=== PATIENT | female | born 1985 | race Caucasian/White ===

== ENCOUNTER 2016-11-05 15:21 | Outpatient (CLI) | payer OTHER | END 2016-11-05 15:22 | disposition home or self-care (01) | DX: E10.42 Type 1 diabetes mellitus with diabetic polyneuropathy (principal) ==

== ENCOUNTER 2016-12-01 | Outpatient (CLI) | payer OTHER | END 2016-12-01 02:30 | disposition EMS.NT | DX: Z03.89 Encounter for observation for other suspected diseases and conditions ruled out (principal) ==

== ENCOUNTER 2017-02-15 08:00 | Outpatient (CLI) | payer OTHER | END 2017-02-15 08:01 | LOC: LAB.R 08:00 | PROVIDERS: ATTEND Obstetrics & Gynecology | DX: Z36 Encounter for antenatal screening of mother (principal) | CPT/HCPCS: 87491; 87591 ==

== ENCOUNTER 2017-03-07 09:02 | Outpatient (CLI) | payer OTHER ==
[2017-03-07 13:03] LABS: BILIRUBIN,URINE NEGATIVE (NEGATIVE); PH,URINE 6.5 PH (5.0-7.5)
[2017-03-07 13:07] LABS: BASOPHILS # (AUTO) 0.1 10^3/uL (0.0-0.1); BASOPHILS % (AUTO) 0.6 %; EOSINOPHILS # (AUTO) 0.1 10^3/uL (0.0-0.7); HCT - HEMATOCRIT 35.8 % (37.0-47.0); HGB - HEMOGLOBIN 12.2 g/dL (12.0-16.0); LYMPHOCYTES # (AUTO) 2.4 10^3/uL (1.5-3.5); MEAN CORPUSCULAR HEMOGLOBIN 31.8 pg (27.0-31.0); MEAN CORPUSCULAR HGB CONC 34.1 g/dL (32.0-36.0); MEAN CORPUSCULAR VOLUME 93.1 fL (81.0-99.0); MEAN PLATELET VOLUME 8.1 fL (7.9-10.8); MONOCYTES # (AUTO) 0.8 10^3/uL (0.0-1.0); MONOCYTES % (AUTO) 6.6 %; NEUTROPHILS # (AUTO) 8.1 10^3/uL (1.5-6.6); NEUTROPHILS % (AUTO) 70.8 %; RED BLOOD COUNT 3.85 10^6/uL (4.20-5.40); RED CELL DISTRIBUTION WIDTH 12.6 % (12.0-15.0); UNCORRECTED WHITE BLOOD COUNT 11.5 x10^3/uL; WHITE BLOOD COUNT 11.5 x10^3/uL (4.8-10.8)
[2017-03-07 13:11] LABS: WBC,URINE 0-3 /HPF (0-5)
[2017-03-07 13:40] LABS: HEMOGLOBIN A1C 0.55 g/dL
[2017-03-08 11:01] LABS: TEST RESULT REPORT (())
== END 2017-03-07 09:03 | disposition home or self-care (01) ==
LOC: LAB.N 09:02
PROVIDERS: ATTEND Obstetrics & Gynecology
DX: Z36 Encounter for antenatal screening of mother (principal)
CPT/HCPCS: 36415; 81001; 81599; 82947; 83036; 85025; 86592; 86762; 86850; 86900; 86901; 87340; 87389

== ENCOUNTER 2017-04-24 03:37 | Outpatient (CLI) | payer OTHER | END 2017-04-24 03:38 | disposition EMS.NT | LOC: EMS 03:37 | PROVIDERS: ATTEND Surgery | DX: O99.89 Other specified diseases and conditions complicating pregnancy, childbirth and the puerperium (principal); R56.9 Unspecified convulsions ==

== ENCOUNTER 2017-04-25 01:39 | Outpatient (CLI) | payer OTHER | END 2017-04-25 01:40 | disposition critical access hospital (66) | LOC: EMS 01:39 | PROVIDERS: ATTEND Surgery | DX: R41.82 Altered mental status, unspecified (principal) | CPT/HCPCS: A0425; A0427 ==

== ENCOUNTER 2017-04-25 02:03 | Emergency (ER) | payer OTHER ==
--- NOTE | 2017-04-25 02:12 | ED Physician Documentation ---
History of Present Illness - Stated complaint Stated Complaint: LOW BLOOD SUGAR - History obtained from History obtained from: Patient - History of Present Illness Pain level now: 0 Improved by: symptoms resolved after IV amp D50 given by medics Worsened by: no apparent inciting or exacerbating factors - Additonal information Additional information: called 911 due to AMS, blood sugar was 20s, improved to 140s after 1 amp D50 IV given by medics en route. Medics were at her house last night for same problem, but patient refused transport once she improved. Review of Systems Constitutional: reports: Myalgias. denies: Fever, Chills, Sweats Eyes: reports: Reviewed and negative Cardiac: reports: Reviewed and negative Respiratory: reports: Cough. denies: Dyspnea GI: reports: Reviewed and negative : denies: Dysuria, Frequency PD PAST MEDICAL HISTORY - Past Medical History Endocrine/Autoimmune: Type 1 diabetes Musculoskeletal: Chronic back pain - Past Surgical History Past Surgical History: No - Present Medications Home Medications: Ambulatory Orders Medication Instructions Recorded Confirmed Lidocaine Viscous 2% [Xylocaine 5 ml MM Q4H PRN #1 bottle 04/25/17 Viscous 2%] - Allergies Allergies/Adverse Reactions: Allergies Allergy/AdvReac Type Severity Reaction Status Date / Time No Known Drug Allergies Allergy Verified 04/25/17 02:13 - Social History Does the pt smoke?: Yes Smoking Status: Current every day smoker Does the pt drink ETOH?: Yes Does the pt have substance abuse?: No - Immunizations Immunizations are current?: Yes - POLST Patient has POLST: No PD ED PE NORMAL - Vitals Vital signs reviewed: Yes - General General: Alert and oriented X 3, No acute distress, Well developed/nourished - Neck Neck: Supple, no meningeal sign - Cardiac Cardiac: RRR, No murmur - Respiratory Respiratory: No respiratory distress, Clear bilaterally - Abdomen Abdomen: Soft, Non tender - Derm Derm: Normal color, Warm and dry - Extremities Extremities: No edema Results - Vitals Vitals: Vital Signs - 24 hr 04/25/17 04/25/17 04/25/17 02:04 03:07 04:05 Temperature 36.5 C Heart Rate 87 97 90 Respiratory 16 16 18 Rate Blood Pressure 96/71 122/66 101/52 L O2 Saturation 100 99 98 Oxygen O2 Source Room air - Labs Labs: Laboratory Tests 04/25/17 04/25/17 04/25/17 02:38 02:48 02:48 WBC 15.0 H RBC 3.83 L Hgb 12.2 Hct 36.5 L MCV 95.2 MCH 31.7 H MCHC 33.3 RDW 12.2 Plt Count 384 MPV 7.4 L Neut # 11.4 H Lymph # 2.2 [place] # 1.1 H Eos # 0.2 Baso # 0.0 Absolute Nucleated RBC 0.01 Nucleated RBCs 0.0 Sodium 136 Potassium 4.3 Chloride 105 Carbon Dioxide 24 Anion Gap 7.0 BUN 10 Creatinine 0.4 Estimated GFR (MDRD) 185 Glucose 72 Calcium 9.0 Total Bilirubin 0.3 AST 21 ALT 18 Alkaline Phosphatase 73 Total Protein 7.3 Albumin 3.8 Globulin 3.5 Albumin/Globulin Ratio 1.1 Lipase 14 L Urine Color YELLOW Urine Clarity CLEAR Urine pH 6.0 Ur Specific [place] 1.015 Urine Protein NEGATIVE Urine Glucose (UA) 100 H Urine Ketones NEGATIVE Urine Occult Blood NEGATIVE Urine Nitrite NEGATIVE Urine Bilirubin NEGATIVE Urine Urobilinogen 0.2 (NORMAL) Ur Leukocyte Esterase NEGATIVE Ur Microscopic Review NOT INDICATED Urine Culture Comments NOT INDICATED PD MEDICAL DECISION MAKING - ED course Complexity details: reviewed results, re-evaluated patient, considered differential, d/w patient Departure - Departure Disposition: 01 Home, Self Care Clinical Impression: Hypoglycemia Condition: Good Instructions: ED Diabetes Hypoglycemia Insulin React Follow-Up: Tabitha Fernandez ARNP [Credentialed Staff Provider] - Prescriptions: Lidocaine Viscous 2% [Xylocaine Viscous 2%] 5 ml MM Q4H PRN #1 bottle PRN Reason: Pain Discharge Date/Time: 04/25/17 04:44
[2017-04-25 02:47] LABS: BILIRUBIN,URINE NEGATIVE (NEGATIVE); UA CHARGE (STRIP ONLY) YES; UR CULTURE IF IND NOT INDICATED
[2017-04-25 03:00] LABS: BASOPHILS % (AUTO) 0.3 %; EOSINOPHILS # (AUTO) 0.2 10^3/uL (0.0-0.7); EOSINOPHILS % (AUTO) 1.5 %; HCT - HEMATOCRIT 36.5 % (37.0-47.0); HGB - HEMOGLOBIN 12.2 g/dL (12.0-16.0); LYMPHOCYTES # (AUTO) 2.2 10^3/uL (1.5-3.5); LYMPHOCYTES % (AUTO) 14.7 %; MEAN CORPUSCULAR HEMOGLOBIN 31.7 pg (27.0-31.0); MEAN CORPUSCULAR HGB CONC 33.3 g/dL (32.0-36.0); MEAN CORPUSCULAR VOLUME 95.2 fL (81.0-99.0); MEAN PLATELET VOLUME 7.4 fL (7.9-10.8); MONOCYTES # (AUTO) 1.1 10^3/uL (0.0-1.0); MONOCYTES % (AUTO) 7.6 %; NEUTROPHILS # (AUTO) 11.4 10^3/uL (1.5-6.6); NEUTROPHILS % (AUTO) 75.9 %; RED BLOOD COUNT 3.83 10^6/uL (4.20-5.40); RED CELL DISTRIBUTION WIDTH 12.2 % (12.0-15.0)
[2017-04-25 03:16] LABS: ALBUMIN/GLOBULIN RATIO 1.1 (1.0-2.2); BILIRUBIN,TOTAL 0.3 mg/dL (0.2-1.0); CREATININE 0.4 mg/dL (0.4-1.0); POTASSIUM 4.3 mmol/L (3.5-5.0); TOTAL PROTEIN 7.3 g/dL (6.7-8.2)
[2017-04-25 04:06] VITALS: BP 101/52
[2017-04-25] MEDS ORDERED: LIDOCAINE VISCOUS 2% 15 ML UDC MM STA (04:28)
[2017-04-25] MEDS ORDERED: LIDOCAINE VISCOUS 2% 15 ML UDC MM ONE (04:31)
== END 2017-04-25 04:44 | disposition home or self-care (01) ==
LOC: EDUNIT# → ED 02:03
DX: E10.649 Type 1 diabetes mellitus with hypoglycemia without coma (principal); F17.200 Nicotine dependence, unspecified, uncomplicated
CPT/HCPCS: 36415; 80053; 81001; 81003; 83690; 85025; 87086; 99283; 99284

== ENCOUNTER 2017-10-03 04:04 | Outpatient (CLI) | payer OTHER | END 2017-10-03 04:05 | disposition EMS.NT | LOC: EMS 04:04 | PROVIDERS: ATTEND Surgery | DX: R73.09 Other abnormal glucose (principal); R46.4 Slowness and poor responsiveness ==

== ENCOUNTER 2018-02-22 15:23 | Emergency (ER) | payer OTHER ==
--- NOTE | 2018-02-22 16:42 | ED Physician Documentation ---
PD HPI ABD PAIN - Stated complaint Stated Complaint: ABD PX - Chief complaint Chief Complaint: Cardiac - History obtained from History obtained from: Patient - History of Present Illness Timing - onset: How many days ago (few) Timing - duration: Days (few) Timing - details: Gradual onset, Waxing and waning Quality: Cramping, Aching, Pain Location: RUQ, Epigastric Radiation: Chest, Upper back Worsened by: Eating Associated symptoms: Nausea. No: Fever, Vomiting, Diarrhea, Melena Similar symptoms before: Has not had sx before Recently seen: Not recently seen Review of Systems Constitutional: denies: Fever, Chills Nose: reports: Congestion. denies: Rhinorrhea / runny nose Throat: denies: Sore throat Cardiac: reports: Chest pain / pressure. denies: Palpitations, Pedal edema, Calf pain Respiratory: reports: Cough (for several days) GI: reports: Abdominal Pain, Nausea. denies: Vomiting, Diarrhea : denies: Dysuria, Frequency Musculoskeletal: denies: Extremity swelling Neurologic: reports: Generalized weakness. denies: Focal weakness, Numbness, Near syncope, Altered mental status PD PAST MEDICAL HISTORY - Past Medical History Cardiovascular: None Respiratory: None Neuro: None Endocrine/Autoimmune: Type 1 diabetes GI: None Musculoskeletal: Chronic back pain - Past Surgical History Past Surgical History: No - Present Medications Home Medications: Ambulatory Orders Medication Instructions Recorded Confirmed Albuterol Sulf [Ventolin Hfa 02/22/18 Inhaler] Gabapentin 100 TID 02/22/18 Ondansetron Odt [Zofran] 4 mg TL Q6H PRN #15 tablet 02/22/18 Pantoprazole [Protonix] 40 mg PO DAILY #30 tablet 02/22/18 Sucralfate 1 gm PO TID #20 tablet 02/22/18 Venlafaxine [Effexor] 02/22/18 oxyCODONE/ACET 5/325 [Percocet 5 02/22/18 mg/325 mg] tiZANidine [Zanaflex] 4 BID 02/22/18 - Allergies Allergies/Adverse Reactions: Allergies Allergy/AdvReac Type Severity Reaction Status Date / Time No Known Drug Allergies Allergy Verified 04/25/17 02:13 - Social History Does the pt smoke?: Yes Smoking Status: Current every day smoker Does the pt drink ETOH?: Yes Does the pt have substance abuse?: No - Immunizations Immunizations are current?: Yes - POLST Patient has POLST: No PD ED PE NORMAL - Vitals Vital signs reviewed: Yes - General General: Alert and oriented X 3, No acute distress, Well developed/nourished - HEENT HEENT: Ears normal, Pharynx benign - Neck Neck: Supple, no meningeal sign, No adenopathy - Cardiac Cardiac: RRR, No murmur - Respiratory Respiratory: Clear bilaterally - Abdomen Abdomen: Normal bowel sounds, Soft, Non distended, No organomegaly, Other ( tender without guarding epigastric/RUQ. ) - Female Female : Deferred - Rectal Rectal: Deferred - Back Back: No CVA TTP - Derm Derm: Normal color, Warm and dry - Extremities Extremities: No deformity, No tenderness to palpate, Normal ROM s pain, No edema , No calf tenderness / cord - Neuro Neuro: Alert and oriented X 3, No motor deficit, Normal speech Results - Vitals Vitals: Oxygen O2 Source Room air - EKG (time done) 16:00 Rate: Rate (enter#) (84) Rhythm: NSR [place]: Normal Intervals: Normal MI QRS: Normal Ischemia: Normal ST segments, ST elevation c/w repol (hint of elevation diffusely). No: ST elevation c/w ischemia, ST depression - Labs Labs: Laboratory Tests 02/22/18 02/22/18 18:24 18:24 WBC 9.5 RBC 4.20 Hgb 12.9 Hct 38.5 MCV 91.6 MCH 30.8 MCHC 33.6 RDW 12.4 Plt Count 400 MPV 7.6 L Neut # 5.5 Lymph # 3.1 [place] # 0.6 Eos # 0.3 Baso # 0.1 Absolute Nucleated RBC 0.00 Nucleated RBC % 0.0 Sodium 134 L Potassium 4.0 Chloride 103 Carbon Dioxide 24 Anion Gap 7.0 BUN 10 Creatinine 0.5 Estimated GFR (MDRD) 142 Glucose 221 H Calcium 8.9 Total Bilirubin 0.7 AST 14 ALT 18 Alkaline Phosphatase 73 Total Protein 7.3 Albumin 4.3 Globulin 3.0 Albumin/Globulin Ratio 1.4 Lipase 13 L - Rads (name of study) chest Radiology: Prelim report reviewed, EMP read contemporaneously (no infiltrates) RUQ US Radiology: Prelim report reviewed (normal gallbladder) PD MEDICAL DECISION MAKING - ED course Complexity details: reviewed results, considered differential (had cough and cold so consider pneumonia or such. but symptoms correlate with eating and has a lot of bleching, so gallbladder, pancreatic, gastritis. Cardiac low suspicion. ), d/w patient Departure - Departure Disposition: 01 Home, Self Care Clinical Impression: Upper abdominal pain Gastritis Qualifiers: Gastritis type: unspecified gastritis Chronicity: acute Gastritis bleeding: without bleeding Qualified Code(s): K29.00 - Acute gastritis without bleeding Condition: Stable Record reviewed to determine appropriate education?: Yes Instructions: ED PUD Vs Gastritis Follow-Up: Tabitha Fernandez ARNP [Primary Care Provider] - Prescriptions: Ondansetron Odt [Zofran] 4 mg TL Q6H PRN #15 tablet PRN Reason: Nausea / Vomiting Pantoprazole [Protonix] 40 mg PO DAILY #30 tablet Sucralfate 1 gm PO TID #20 tablet Comments: Your chest x-ray is clear. The gallbladder appears normal on ultrasound. Lab tests are good so not looking like pancreas or liver problems. I presume it is a gastritis or possibly ulcer. Use pantoprazole daily for the next month. Sucralfate 3 times a day to coat the stomach. Add antacids if needed and Tylenol if needed for pain. Ondansetron if needed for nausea. Follow-up with your primary care in about a week, call for an appointment. Return if worsening. Discharge Date/Time: 02/22/18 19:45
[2018-02-22] MEDS ORDERED: MAG HYDROX/AL HYDROX/SIMETH 30 ML UDC PO STA (16:57)
[2018-02-22] MEDS ORDERED: PHENobarb/HYOSCY/ATROPINE/SCOP 5 ML UDC PO STA (16:57)
[2018-02-22] MEDS ORDERED: LIDOCAINE VISCOUS 2% 15 ML UDC MM STA (16:57)
--- NOTE | 2018-02-22 17:41 | XRAY Preliminary Report ---
Exam: XR CHEST 2 VIEW X-RAY IMPRESSION: No acute radiographic pulmonary abnormalities. [facility] SITE ID: [id number]
--- NOTE | 2018-02-22 17:41 | XRAY Report ---
EXAM: CHEST RADIOGRAPHY EXAM DATE: 02/22/2018 05:27 PM. CLINICAL HISTORY: Rib pain. COMPARISON: None. TECHNIQUE: 2 views. FINDINGS: Lungs/Pleura: No dense consolidation. No large effusion or pneumothorax. No pulmonary edema. Mediastinum: Heart and mediastinal contours are unremarkable. Other: None. IMPRESSION: No acute radiographic pulmonary abnormalities. [facility] Referring Provider Line: [phone] SITE ID: [id number]
--- NOTE | 2018-02-22 18:29 | Ultrasound Report ---
EXAM: ABDOMEN ULTRASOUND LIMITED, RUQ EXAM DATE: 02/22/2018 05:41 PM. CLINICAL HISTORY: RUQ pain for several days. COMPARISON: None. TECHNIQUE: Real-time scanning was performed with static images obtained. FINDINGS: Liver: Submitted images of liver demonstrate no focal lesions. Main portal vein flow: Hepatopetal. Gallbladder: No stones, wall thickening, or sonographic Land's sign. Biliary System: CBD measures 2 mm. No intrahepatic or extrahepatic ductal dilatation. Other: The visualized pancreas and right kidney are unremarkable. IMPRESSION: Negative right upper quadrant ultrasound. [facility] Referring Provider Line: [phone] SITE ID: [id number]
[2018-02-22 18:38] LABS: BASOPHILS # (AUTO) 0.1 10^3/uL (0.0-0.1); EOSINOPHILS # (AUTO) 0.3 10^3/uL (0.0-0.7); EOSINOPHILS % (AUTO) 2.9 %; HGB - HEMOGLOBIN 12.9 g/dL (12.0-16.0); LYMPHOCYTES # (AUTO) 3.1 10^3/uL (1.5-3.5); LYMPHOCYTES % (AUTO) 32.6 %; MEAN CORPUSCULAR HEMOGLOBIN 30.8 pg (27.0-31.0); MEAN CORPUSCULAR HGB CONC 33.6 g/dL (32.0-36.0); MEAN CORPUSCULAR VOLUME 91.6 fL (81.0-99.0); MEAN PLATELET VOLUME 7.6 fL (7.9-10.8); MONOCYTES # (AUTO) 0.6 10^3/uL (0.0-1.0); MONOCYTES % (AUTO) 6.2 %; NEUTROPHILS # (AUTO) 5.5 10^3/uL (1.5-6.6); NEUTROPHILS % (AUTO) 57.3 %; PLT - PLATELET COUNT 400 10^3/uL (130-450); RED CELL DISTRIBUTION WIDTH 12.4 % (12.0-15.0); WHITE BLOOD COUNT 9.5 x10^3/uL (4.8-10.8)
[2018-02-22 18:45] LABS: ALBUMIN 4.3 g/dL (3.2-5.5); ALBUMIN/GLOBULIN RATIO 1.4 (1.0-2.2); BILIRUBIN,TOTAL 0.7 mg/dL (0.2-1.0); CALCIUM 8.9 mg/dL (8.5-10.3); CREATININE 0.5 mg/dL (0.4-1.0); TOTAL PROTEIN 7.3 g/dL (6.7-8.2)
[2018-02-22] MEDS ORDERED: PANTOPRAZOLE 40 MG TABLET PO STA (19:41)
[2018-02-22 19:48] VITALS: BP 122/72
== END 2018-02-22 19:45 | disposition home or self-care (01) ==
LOC: ED 15:23
DX: R10.11 Right upper quadrant pain (principal); K29.00 Acute gastritis without bleeding; R94.31 Abnormal electrocardiogram [ECG] [EKG]; E10.9 Type 1 diabetes mellitus without complications; F17.200 Nicotine dependence, unspecified, uncomplicated
CPT/HCPCS: 36415; 71046; 76705; 80053; 83690; 85025; 93005; 99283; A9270

== ENCOUNTER 2018-08-18 14:39 | Emergency (ER) | payer OTHER ==
[2018-08-18 14:51] VITALS: BP 113/75
--- NOTE | 2018-08-18 16:38 | ED Physician Documentation ---
PD HPI URI - Stated complaint Stated Complaint: SORE THROAT/TOE PX - Chief complaint Chief Complaint: Heent - History obtained from History obtained from: Patient - History of Present Illness Timing duration: Weeks (1) Timing details: Still present Associated symptoms: Sore throat, Dry cough Contributing factors: Sick contact - Additional information Additional information: The patient is a 33-year-old female who presents with upper respiratory symptoms, including cough for the past week, sore throat, and headache. She denies fever, shortness of breath, or abdominal symptoms. She reports that her was sick with similar symptoms previously. In addition, she also reports injury to her right fourth toe when she stubbed it on the bedpost 2 nights ago. At the same time she banged her left eye on edge of the dresser. She denies loss of consciousness or other injuries. Her past medical history is significant for type 2 diabetes and for seizure disorder. Review of Systems Constitutional: denies: Fever Eyes: denies: Irritation Ears: denies: Ear pain Nose: reports: Congestion Throat: reports: Sore throat Cardiac: denies: Chest pain / pressure Respiratory: reports: Cough. denies: Dyspnea GI: denies: Abdominal Pain, Nausea, Vomiting : denies: Dysuria Skin: denies: Rash Musculoskeletal: denies: Neck pain Neurologic: reports: Headache. denies: Focal weakness, Numbness PD PAST MEDICAL HISTORY - Past Medical History Cardiovascular: None Respiratory: None Neuro: None Endocrine/Autoimmune: Type 2 diabetes GI: None Musculoskeletal: Chronic back pain - Past Surgical History Past Surgical History: No - Present Medications Home Medications: Ambulatory Orders Medication Instructions Recorded Confirmed Albuterol Sulf [Ventolin Hfa 02/22/18 Inhaler] Gabapentin 100 TID 02/22/18 Ondansetron Odt [Zofran] 4 mg TL Q6H PRN #15 tablet 02/22/18 Pantoprazole [Protonix] 40 mg PO DAILY #30 tablet 02/22/18 Sucralfate 1 gm PO TID #20 tablet 02/22/18 Venlafaxine [Effexor] 02/22/18 oxyCODONE/ACET 5/325 [Percocet 5 02/22/18 mg/325 mg] tiZANidine [Zanaflex] 4 BID 02/22/18 Benzonatate [Tessalon Perle] 100 - 200 mg PO TID PRN #30 capsule 08/18/18 - Allergies Allergies/Adverse Reactions: Allergies Allergy/AdvReac Type Severity Reaction Status Date / Time No Known Drug Allergies Allergy Verified 08/18/18 14:51 - Social History Does the pt smoke?: Yes Smoking Status: Current every day smoker Does the pt drink ETOH?: Yes Does the pt have substance abuse?: No - Immunizations Immunizations are current?: Yes - POLST Patient has POLST: No PD ED PE NORMAL - Vitals Vital signs reviewed: Yes (normal, with heart rate 86.) - General General: Alert and oriented X 3, Well developed/nourished - HEENT HEENT: PERRL, EOMI, Ears normal, Other (There is faint ecchymosis the left upper brow. There is no break in the integument. Extraocular movements are intact. O ropharynx is mildly erythematous, without tonsillar swelling or exudates. There is no peritonsillar swelling.) - Neck Neck: Supple, no meningeal sign, No adenopathy - Cardiac Cardiac: RRR, No murmur - Respiratory Respiratory: No respiratory distress, Clear bilaterally - Abdomen Abdomen: Soft, Non tender - Back Back: No CVA TTP - Derm Derm: No rash - Extremities Extremities: No edema, No calf tenderness / cord, Other (There is faint ecchymosis at the distal aspect of the right fourth toe, with associated tenderness to palpation. There is no deformity, no break in the integument, and distal neurovascular is intact.) - Neuro Neuro: Alert and oriented X 3, No motor deficit, No sensory deficit, Normal speech Results - Vitals Vitals: Oxygen O2 Source Room air - Labs Labs: Microbiology 08/18/18 15:55 Group A Strep Throat Culture - Final Throat MIXED OROPHARYNGEAL CASTILLO PRESENT. NO BETA STREP PRESENT IN CULTURE. Laboratory Tests 08/18/18 15:55 Group A Strep Rapid Negative PD MEDICAL DECISION MAKING - ED course Complexity details: reviewed results, re-evaluated patient, considered differential, d/w patient, d/w family ED course: The patient's presentation is most consistent with viral upper respiratory infection with cough. Rapid strep screen is negative. Her presentation does not suggest pneumonia or peritonsillar abscess. In addition she has a contusion to her right fourth toe. I discussed with her that imaging studies would be of no significant clinical benefit, as the results would not impact treatment. The fourth toe was ramya taped to the third toe. She is being discharged with a prescription for Tessalon. I discussed with her the expected course of illness, symptomatic treatment and outpatient follow-up as well as potentially worrisome signs or symptoms that should prompt reevaluation in the emergency department. Departure - Departure Disposition: 01 Home, Self Care Clinical Impression: Viral URI with cough Contusion of toe of right foot Qualifiers: Encounter type: initial encounter Toe: lesser toe Damage to nail status: without damage Qualified Code(s): S90.121A - Contusion of right lesser toe(s) without damage to nail, initial encounter Condition: Stable Instructions: ED Upper Resp Infec No Abx Tx, ED Contusion Lower Ext Follow-Up: Tabitha Fernandez ARNP [Primary Care Provider] - Prescriptions: Benzonatate [Tessalon Perle] 100 - 200 mg PO TID PRN #30 capsule PRN Reason: Cough Comments: Your symptoms are most consistent with a viral upper respiratory infection. Antibiotics are not clinically indicated for this type of viral infection. Treatment should be geared toward managing symptoms: Drink plenty of fluids. Use Tylenol as needed for fever or discomfort. You can use Tessalon as prescribed if needed for cough. Wash your hands frequently, and cover your cough. Follow up with your primary physician, or return to the emergency department, if not improving within 1-2 weeks. Return to the emergency department if you develop increasing difficulty breathing, or otherwise worsening symptoms. Discharge Date/Time: 08/18/18 16:42
== END 2018-08-18 16:42 | disposition home or self-care (01) ==
LOC: ED 14:39
DX: J06.9 Acute upper respiratory infection, unspecified (principal); B97.89 Other viral agents as the cause of diseases classified elsewhere; E11.9 Type 2 diabetes mellitus without complications; F17.200 Nicotine dependence, unspecified, uncomplicated
CPT/HCPCS: 87070; 87430; 99282; 99283

== ENCOUNTER 2018-09-27 14:31 | Outpatient (CLI) | payer OTHER | END 2018-09-27 14:32 | disposition EMS.NT | LOC: EMS 14:31 | PROVIDERS: ATTEND Surgery | DX: S09.90XA Unspecified injury of head, initial encounter (principal); R55 Syncope and collapse; R56.9 Unspecified convulsions; R73.09 Other abnormal glucose ==

== ENCOUNTER 2018-12-04 16:01 | Outpatient (CLI) | payer OTHER | END 2018-12-04 16:02 | disposition critical access hospital (66) | LOC: EMS 16:01 | PROVIDERS: ATTEND Surgery | DX: R40.20 Unspecified coma (principal) | CPT/HCPCS: A0425; A0427 ==

== ENCOUNTER 2018-12-04 16:21 | Emergency (ER) | payer OTHER ==
--- NOTE | 2018-12-04 16:31 | ED Physician Documentation ---
PD HPI ALTERED MENTAL STATUS - Stated complaint Stated Complaint: ALOC - History obtained from History obtained from: Patient, EMS - History of Present Illness Timing - onset: Today (This is a 33-year-old woman with type 1 diabetes. She takes Lantus and NovoLog. Most of the history is from the paramedics as the patient is very slow to answer questions on arrival. I guess the kids got home from school on the bus and she did not go out to meet them so the neighbors got concerned and found her obtunded. Her blood sugar was low and she was administered D50. Her blood sugar then went to the 200s, but her mental status did not return fully to normal. She is slow to answer questions with slurred speech now. She says she may have taken extra Lantus today. [employer] reviewed, she is receiving 2 different types of benzodiazepines from a single physician, 60 0.5 mg alprazolam per month and 45 1 mg clonazepam per month.) Review of Systems Unable to obtain: Confused PD PAST MEDICAL HISTORY - Past Medical History Cardiovascular: None Respiratory: None Neuro: None Endocrine/Autoimmune: Type 2 diabetes GI: None Musculoskeletal: Chronic back pain - Past Surgical History Past Surgical History: No - Present Medications Home Medications: Ambulatory Orders Medication Instructions Recorded Confirmed Gabapentin 600 mg PO TID 02/22/18 Pantoprazole [Protonix] 40 mg PO DAILY #30 tablet 02/22/18 ALPRAZolam [Alprazolam] 0.5 mg PO BID 12/04/18 Insulin Aspart [NovoLOG] 12/04/18 Insulin Glargine [Lantus Solostar] 21 units SQ QPM 12/04/18 Venlafaxine HCl [Venlafaxine HCl 150 mg PO DAILY 12/04/18 ER] clonazePAM [Clonazepam] 1 mg PO BID 12/04/18 - Allergies Allergies/Adverse Reactions: Allergies Allergy/AdvReac Type Severity Reaction Status Date / Time No Known Drug Allergies Allergy Verified 12/04/18 16:33 - Social History Does the pt smoke?: Yes Smoking Status: Current every day smoker Does the pt drink ETOH?: Yes Does the pt have substance abuse?: No - Immunizations Immunizations are current?: Yes - POLST Patient has POLST: No PD ED PE NORMAL - Vitals Vital signs reviewed: Yes - General General: Other (Slow slurred speech) - HEENT HEENT: Other (Dilated pupils with a lot of nystagmus) - Neck Neck: Supple, no meningeal sign, No bony TTP - Cardiac Cardiac: RRR, No murmur - Respiratory Respiratory: No respiratory distress, Clear bilaterally - Abdomen Abdomen: Soft, Non tender - Back Back: No CVA TTP, No spinal TTP - Derm Derm: Normal color, Warm and dry - Extremities Extremities: No edema, No calf tenderness / cord - Neuro Neuro: cash clerk 2-12 intact, Normal speech Eye Opening: Spontaneous Motor: Obeys Commands Verbal: Confused GCS Score: 14 Results - Vitals Vitals: Vital Signs - 24 hr 12/04/18 12/04/18 12/04/18 16:26 16:56 18:06 Temperature 35.7 C L Heart Rate 79 82 82 Respiratory 14 16 18 Rate Blood Pressure 100/67 95/65 106/63 O2 Saturation 98 100 100 Oxygen O2 Source Room air - Labs Labs: Laboratory Tests 12/04/18 12/04/18 12/04/18 16:45 16:45 16:50 WBC 11.7 H RBC 3.93 L Hgb 12.5 Hct 36.9 L MCV 93.8 MCH 31.7 H MCHC 33.8 RDW 12.2 Plt Count 409 MPV 7.4 L Neut # (Auto) 9.0 H Lymph # (Auto) 1.8 [place] # (Auto) 0.6 Eos # (Auto) 0.2 Baso # (Auto) 0.1 Absolute Nucleated RBC 0.00 Nucleated RBC % 0.0 Sodium 139 Potassium 4.3 Chloride 104 Carbon Dioxide 29 Anion Gap 6.0 Glucose 95 Calcium 8.9 Urine Color Urine Clarity Urine pH Ur Specific [place] Urine Protein Urine Glucose (UA) Urine Ketones Urine Occult Blood Urine Nitrite Urine Bilirubin Urine Urobilinogen Ur Leukocyte Esterase Ur Microscopic Review Urine Culture Comments Urine HCG, Qual Urine Opiates Screen NEGATIVE Ur Oxycodone Screen NEGATIVE Urine Methadone Screen NEGATIVE Ur Propoxyphene Screen NEGATIVE Ur Barbiturates Screen NEGATIVE Ur Tricyclics Screen NEGATIVE Ur Phencyclidine Scrn NEGATIVE Ur Amphetamine Screen NEGATIVE U Methamphetamines Scrn NEGATIVE U Benzodiazepines Scrn POSITIVE H Urine Cocaine Screen NEGATIVE U Cannabinoids Screen POSITIVE H 12/04/18 16:50 WBC RBC Hgb Hct MCV MCH MCHC RDW Plt Count MPV Neut # (Auto) Lymph # (Auto) [place] # (Auto) Eos # (Auto) Baso # (Auto) Absolute Nucleated RBC Nucleated RBC % Sodium Potassium Chloride Carbon Dioxide Anion Gap Glucose Calcium Urine Color YELLOW Urine Clarity CLEAR Urine pH 5.5 Ur Specific [place] <=1.005 Urine Protein NEGATIVE Urine Glucose (UA) NEGATIVE Urine Ketones NEGATIVE Urine Occult Blood NEGATIVE Urine Nitrite NEGATIVE Urine Bilirubin NEGATIVE Urine Urobilinogen 0.2 (NORMAL) Ur Leukocyte Esterase NEGATIVE Ur Microscopic Review NOT INDICATED Urine Culture Comments NOT INDICATED Urine HCG, Qual NEGATIVE Urine Opiates Screen Ur Oxycodone Screen Urine Methadone Screen Ur Propoxyphene Screen Ur Barbiturates Screen Ur Tricyclics Screen Ur Phencyclidine Scrn Ur Amphetamine Screen U Methamphetamines Scrn U Benzodiazepines Scrn Urine Cocaine Screen U Cannabinoids Screen PD MEDICAL DECISION MAKING - ED course ED course: This is a 33-year-old woman on Lantus and Humalog presents with hypoglycemia which is unexplained on arrival. She is still altered despite her blood sugar being fixed. Could be a benzodiazepine or alcohol effect or she may just have been hypoglycemic for a long time. On recheck at 5:50 PM she drifted back down to a blood sugar of 40 necessitating prolonged observation and she was given half an amp of D50 and started on a D10 drip and I spoke with Dr. Pérez for admission at 5:57 PM. However she demanded to leave AGAINST MEDICAL ADVICE. She was cogent at this point, she was alert and oriented x3 and was able to state back to me the risks of leaving which included and disability. Her was present for these conversations and was willing to take her home. Departure - Departure Disposition: 07 Against Medical Advice Clinical Impression: Hypoglycemia Condition: Serious
[2018-12-04 16:56] LABS: BASOPHILS # (AUTO) 0.1 10^3/uL (0.0-0.1); BASOPHILS % (AUTO) 0.6 %; EOSINOPHILS # (AUTO) 0.2 10^3/uL (0.0-0.7); EOSINOPHILS % (AUTO) 1.7 %; HGB - HEMOGLOBIN 12.5 g/dL (12.0-16.0); LYMPHOCYTES # (AUTO) 1.8 10^3/uL (1.5-3.5); LYMPHOCYTES % (AUTO) 15.4 %; MEAN CORPUSCULAR HEMOGLOBIN 31.7 pg (27.0-31.0); MEAN CORPUSCULAR HGB CONC 33.8 g/dL (32.0-36.0); MEAN CORPUSCULAR VOLUME 93.8 fL (81.0-99.0); MEAN PLATELET VOLUME 7.4 fL (7.9-10.8); MONOCYTES # (AUTO) 0.6 10^3/uL (0.0-1.0); MONOCYTES % (AUTO) 5.5 %; NEUTROPHILS % (AUTO) 76.8 %; PLT - PLATELET COUNT 409 10^3/uL (130-450); RED BLOOD COUNT 3.93 10^6/uL (4.20-5.40); RED CELL DISTRIBUTION WIDTH 12.2 % (12.0-15.0); WHITE BLOOD COUNT 11.7 x10^3/uL (4.8-10.8)
[2018-12-04 17:04] LABS: MUDS CUTOFF CONCENTRATIONS CUTOFF CONC BELOW:
[2018-12-04 17:04] LABS: CALCIUM 8.9 mg/dL (8.5-10.3); CARBON DIOXIDE - CO2 29 mmol/L (21-32); CHLORIDE 104 mmol/L (101-111); GLUCOSE 95 mg/dL (70-100); SODIUM 139 mmol/L (135-145)
[2018-12-04 17:08] LABS: BILIRUBIN,URINE NEGATIVE (NEGATIVE); GLUCOSE, URINE (UA) NEGATIVE (NEGATIVE); KETONES,URINE (UA) NEGATIVE (NEGATIVE); LEUKOCYTE ESTERASE, URINE NEGATIVE (NEGATIVE); NITRITE,URINE NEGATIVE (NEGATIVE); OCCULT BLOOD,URINE NEGATIVE (NEGATIVE); PH,URINE 5.5 PH (5.0-7.5); PROTEIN,URINE NEGATIVE (NEGATIVE); UROBILINOGEN,URINE 0.2 (NORMAL) E.U./dL (NORMAL)
[2018-12-04 17:11] LABS: CLARITY,URINE CLEAR (CLEAR); HCG UR QUAL NEGATIVE
[2018-12-04 17:21] LABS: AMPHETAMINE SCREEN,URINE NEGATIVE (NEGATIVE); BENZODIAZEPINES SCREEN, URINE POSITIVE (NEGATIVE); COCAINE SCREEN URINE NEGATIVE (NEGATIVE); METHADONE SCREEN, URINE NEGATIVE (NEGATIVE); METHAMPHETAMINES SCREEN, URINE NEGATIVE (NEGATIVE); OPIATE SCREEN, URINE NEGATIVE (NEGATIVE); OXYCODONE SCREEN, URINE NEGATIVE (NEGATIVE); PROPOXYPHENE SCREEN, URINE NEGATIVE (NEGATIVE); TRICYCLIC ANTIDEPRESSANT,URINE NEGATIVE (NEGATIVE)
[2018-12-04] MEDS ORDERED: DEXTROSE 50% ABBOJECT 25 GM/50 ML SYRINGE IVP STA (17:55)
[2018-12-04] MEDS ORDERED: DEXTROSE 10% 1,000 ML IV SCH ×3 (18:00→19:00)
[2018-12-04] MEDS ORDERED: ONDANSETRON 4 MG/2 ML VIAL IVP PRN (18:04)
[2018-12-04] MEDS ORDERED: SODIUM CHLORIDE FLUSH 0.9% 10 ML SYRINGE IVP PRN (18:04)
[2018-12-04 18:08] VITALS: BP 106/63
[2018-12-04 19:06] LABS: ALBUMIN 4.4 g/dL (3.2-5.5); ALBUMIN/GLOBULIN RATIO 1.5 (1.0-2.2); ALKALINE PHOSPHATASE 70 IU/L (42-121); ALT ALANINE AMINOTRANSFERASE 14 IU/L (10-60); AST ASPARTATE AMINOTRANSFERASE 20 IU/L (10-42); BILIRUBIN,TOTAL 0.5 mg/dL (0.2-1.0); BUN - BLOOD UREA NITROGEN 11 mg/dL (6-20); CREATININE 0.6 mg/dL (0.4-1.0); GFR - MDRD 114 (>89); LIPASE 19 U/L (22-51); TOTAL PROTEIN 7.4 g/dL (6.7-8.2)
[2018-12-05] MEDS ORDERED: SODIUM CHLORIDE FLUSH 0.9% 10 ML SYRINGE IVP SCH (01:00)
[2018-12-05] MEDS ORDERED: ENOXAPARIN 40 MG/0.4 ML SYRINGE SUBQ SCH (09:00)
[2018-12-05] MEDS ORDERED: POLYETHYLENE GLYCOL 3350 17 GM PACKET PO SCH (09:00)
== END 2018-12-04 18:25 | disposition left against medical advice (07) ==
LOC: EDUNIT# → ED 16:21
DX: E10.65 Type 1 diabetes mellitus with hyperglycemia (principal); F17.200 Nicotine dependence, unspecified, uncomplicated; Z79.4 Long term (current) use of insulin; Z53.20 Procedure and treatment not carried out because of patient's decision for unspecified reasons
CPT/HCPCS: 36415; 80053; 80306; 80320; 81001; 81003; 81025; 83690; 85025; 87086; 96374; 99283

== ENCOUNTER 2019-04-06 06:53 | Emergency (ER) | payer OTHER ==
[2019-04-06] MEDS ORDERED: TETANUS/DIPHTHERIA/PERTUSSIS 0.5 ML SYRINGE IM ONE (07:39)
[2019-04-06] MEDS ORDERED: AMPICILLIN/SULBACTAM 3 GM in SODIUM CHLORIDE 0.9% MINIBAG 100 ML IV STA (07:39)
[2019-04-06] MEDS ORDERED: SODIUM CHLORIDE 0.9% MINIBAG 100 ML IV ONE (08:01)
--- NOTE | 2019-04-06 08:16 | ED Physician Documentation ---
PD HPI ANIMAL BITE - Stated complaint Stated Complaint: Cat bite to finger - Chief complaint Chief Complaint: General - History obtained from History obtained from: Patient - History of Present Illness Location of injury(ies): Left hand Details of the event: Cat, Bite, Pet animal, Well appearing, Provoked, Animal can be observed Timing - onset: Yesterday Associated symptoms: Swelling, Discolored Similar symptoms before: Has not had sx before Recently seen: Clinic - Additional information Additional information: The patient is a 33-year-old [id number] female who presents with cat bite wound to her left index finger. Her pet cat was chased into a tree yesterday by a dog. When rescuing her cat from the tree the cat bit her left index finger. She presents today because of redness, swelling, and pain in her finger, as well as lymphangitic streaking up her left arm with tenderness in the left axilla. She denies fever, numbness or weakness. The date of her last tetanus booster is unknown. She was seen by her primary physician earlier this week and was prescribed clindamycin for presumed sinus infection. She has not yet started the antibiotic. Review of Systems Constitutional: denies: Fever Nose: reports: Sinus pressure / pain Throat: denies: Sore throat Respiratory: denies: Dyspnea GI: denies: Nausea, Vomiting Skin: reports: Bite / sting (Left index finger.) Musculoskeletal: reports: Extremity pain (Left upper extremity.) Neurologic: denies: Focal weakness, Numbness PD PAST MEDICAL HISTORY - Past Medical History Cardiovascular: None Respiratory: None Neuro: None Endocrine/Autoimmune: Type 2 diabetes GI: None Musculoskeletal: Chronic back pain Derm: Other - Past Surgical History Past Surgical History: No - Present Medications Home Medications: Ambulatory Orders Medication Instructions Recorded Confirmed Gabapentin 600 mg PO TID 02/22/18 Pantoprazole [Protonix] 40 mg PO DAILY #30 tablet 02/22/18 ALPRAZolam [Alprazolam] 0.5 mg PO BID 12/04/18 Insulin Aspart [NovoLOG] 12/04/18 Insulin Glargine [Lantus Solostar] 21 units SQ QPM 12/04/18 Venlafaxine HCl [Venlafaxine HCl 150 mg PO DAILY 12/04/18 ER] clonazePAM [Clonazepam] 1 mg PO BID 12/04/18 Amox/Clav 875/125 [Augmentin] 1 each PO Q12H #20 tablet 04/06/19 - Allergies Allergies/Adverse Reactions: Allergies Allergy/AdvReac Type Severity Reaction Status Date / Time No Known Drug Allergies Allergy Verified 04/06/19 07:03 - Social History Does the pt smoke?: Yes Smoking Status: Current every day smoker Does the pt drink ETOH?: Yes Does the pt have substance abuse?: No - Immunizations Immunizations are current?: Yes - POLST Patient has POLST: No PD ED PE NORMAL - Vitals Vital signs reviewed: Yes (normal) - General General: Alert and oriented X 3, Well developed/nourished - HEENT HEENT: Atraumatic, Pharynx benign - Neck Neck: No adenopathy - Cardiac Cardiac: RRR, No murmur - Respiratory Respiratory: No respiratory distress, Clear bilaterally - Abdomen Abdomen: Soft, Non tender - Derm Derm: No rash - Extremities Extremities: Other (3 puncture wounds are noted on the left index finger proximal to the DIP joint. There is erythema and swelling of the index finger, with lymphangitic streaking extending up the dorsum of the hand, radial aspect of the forearm and upper arm, with tenderness to palpation in the left axilla. There is limited range of motion of the index finger due to swelling. She can fully extend the finger and can flex it to 40 degrees at the PIP joint. There does not appear to be an abscess. Distal neurovascular is intact.) Results - Vitals Vitals: Vital Signs - 24 hr 04/06/19 09:40 Temperature 36.7 C Heart Rate 73 Respiratory 20 Rate Blood Pressure 121/87 H O2 Saturation 98 Oxygen O2 Source Room air - Labs Labs: Laboratory Tests 04/06/19 04/06/19 08:00 08:00 WBC 14.9 H RBC 4.08 L Hgb 12.7 Hct 39.4 MCV 96.6 MCH 31.1 H MCHC 32.2 RDW 11.9 L Plt Count 369 MPV 9.8 Neut # (Auto) 11.1 H Lymph # (Auto) 2.1 Mcclain # (Auto) 1.2 H Eos # (Auto) 0.3 Baso # (Auto) 0.1 Absolute Nucleated RBC 0.00 Nucleated RBC % 0.0 Sodium 139 Potassium 4.1 Chloride 105 Carbon Dioxide 24 Anion Gap 10.0 BUN 11 Creatinine 0.6 Estimated GFR (MDRD) 114 Glucose 75 Calcium 9.2 PD MEDICAL DECISION MAKING - ED course Complexity details: re-evaluated patient, considered differential, d/w patient, d/w clinical documentation consultant ED course: The patient's presentation is significant for infected cat bite wound to the left index finger, with lymphangitic streaking. She does not appear to have systemic symptoms or abscess. There does not appear to be joint involvement. Treatment in the emergency department included administration of Unasyn 3 g IV. I discussed her condition with Dr. Pan, who recommended inpatient antibiotic therapy or, given the patient's resistance to inpatient treatment, outpatient therapy with follow-up visit tomorrow for reevaluation. I emphasized to the patient the importance of return visit tomorrow for reevaluation, as well as potentially worrisome signs or symptoms that should prompt a more urgent return to the emergency department. She is being discharged with a prescription for Augmentin. Departure - Departure Disposition: 01 Home, Self Care Clinical Impression: Infected cat bite of finger Qualifiers: Encounter type: initial encounter Qualified Code(s): S61.259A - Open bite of unspecified finger without damage to nail, initial encounter Condition: Stable Instructions: ED Bite Cat Follow-Up: Tabitha Fernandez ARNP [Primary Care Provider] - Kenna Pan MD [Provider Admit Priv/Credential] - Prescriptions: Amox/Clav 875/125 [Augmentin] 1 each PO Q12H #20 tablet Comments: Keep your left hand elevated as much the time as possible. Take Augmentin twice daily as prescribed. You can use ibuprofen, up to 800 mg 3 times daily for anti-inflammatory effect. Return to the emergency department tomorrow for recheck. Return sooner if you develop increasing redness, swelling, pain, or otherwise worsening symptoms. Discharge Date/Time: 04/06/19 09:41
[2019-04-06 08:29] LABS: BASOPHILS # (AUTO) 0.1 10^3/uL (0.0-0.1); BASOPHILS % (AUTO) 0.6 %; EOSINOPHILS # (AUTO) 0.3 10^3/uL (0.0-0.7); EOSINOPHILS % (AUTO) 2.2 %; HGB - HEMOGLOBIN 12.7 g/dL (12.0-16.0); LYMPHOCYTES # (AUTO) 2.1 10^3/uL (1.5-3.5); LYMPHOCYTES % (AUTO) 14.2 %; MEAN CORPUSCULAR HEMOGLOBIN 31.1 pg (27.0-31.0); MEAN CORPUSCULAR HGB CONC 32.2 g/dL (32.0-36.0); MEAN CORPUSCULAR VOLUME 96.6 fL (81.0-99.0); MEAN PLATELET VOLUME 9.8 fL (7.9-10.8); MONOCYTES # (AUTO) 1.2 10^3/uL (0.0-1.0); MONOCYTES % (AUTO) 7.7 %; NEUTROPHILS # (AUTO) 11.1 10^3/uL (1.5-6.6); NEUTROPHILS % (AUTO) 74.6 %; PLT - PLATELET COUNT 369 10^3/uL (130-450); RED BLOOD COUNT 4.08 10^6/uL (4.20-5.40); RED CELL DISTRIBUTION WIDTH 11.9 % (12.0-15.0); WHITE BLOOD COUNT 14.9 x10^3/uL (4.8-10.8)
[2019-04-06 08:39] LABS: CALCIUM 9.2 mg/dL (8.5-10.3); CREATININE 0.6 mg/dL (0.4-1.0)
[2019-04-06 09:41] VITALS: BP 121/87
== END 2019-04-06 09:41 | disposition home or self-care (01) ==
LOC: ED 06:53
DX: S61.251A Open bite of left index finger without damage to nail, initial encounter (principal); W55.01XA Bitten by cat, initial encounter; E11.9 Type 2 diabetes mellitus without complications; F17.200 Nicotine dependence, unspecified, uncomplicated; Z79.4 Long term (current) use of insulin; Z23 Encounter for immunization
CPT/HCPCS: 36415; 80048; 85025; 90471; 96365; 99283

== ENCOUNTER 2019-04-07 09:43 | Emergency (ER) | payer OTHER ==
--- NOTE | 2019-04-07 10:29 | ED Physician Documentation ---
PD HPI WOUND RECHECK - Stated complaint Stated Complaint: WOUND CHECK - Chief complaint Chief Complaint: Wound - Histroy obtained from History obtained from: Patient - History of Present Illness Location: Left Uppper Extremity (left index finger with cat bite and infection with lymphangitis - seen yesterday and had abx started with red area marked with skin marker. Patient says the redness is much decreased but not gone today.) Timing - onset: How many days ago (2-3) Associated symptoms: Redness, Swelling (decreased from yesterday). No: Fever Recently seen: Emergency Dept (yesterday) Review of Systems Constitutional: denies: Fever, Chills, Myalgias Skin: reports: Rash Neurologic: denies: Focal weakness, Numbness PD PAST MEDICAL HISTORY - Past Medical History Past Medical History: No Cardiovascular: None Respiratory: None Neuro: None Endocrine/Autoimmune: Type 2 diabetes GI: None Musculoskeletal: Chronic back pain Derm: Other - Past Surgical History Past Surgical History: No - Present Medications Home Medications: Ambulatory Orders Medication Instructions Recorded Confirmed Gabapentin 600 mg PO TID 02/22/18 04/07/19 Pantoprazole [Protonix] 40 mg PO DAILY #30 tablet 02/22/18 04/07/19 ALPRAZolam [Alprazolam] 0.5 mg PO BID 12/04/18 04/07/19 Insulin Aspart [NovoLOG] See Protocol INJ 12/04/18 Insulin Glargine [Lantus Solostar] 21 units SQ QPM 12/04/18 04/07/19 Venlafaxine HCl [Venlafaxine HCl 150 mg PO DAILY 12/04/18 04/07/19 ER] clonazePAM [Clonazepam] 1 mg PO BID 12/04/18 04/07/19 Amox/Clav 875/125 [Augmentin] 1 each PO Q12H #20 tablet 04/06/19 04/07/19 - Allergies Allergies/Adverse Reactions: Allergies Allergy/AdvReac Type Severity Reaction Status Date / Time No Known Drug Allergies Allergy Verified 04/07/19 09:50 - Social History Does the pt smoke?: Yes Smoking Status: Current every day smoker Does the pt drink ETOH?: Yes Does the pt have substance abuse?: No - Immunizations Immunizations are current?: Yes - POLST Patient has POLST: No PD ED PE NORMAL - Vitals Vital signs reviewed: Yes - General General: Alert and oriented X 3, No acute distress, Well developed/nourished - Derm Derm: Warm and dry - Extremities Extremities: Other (left index finger with cat bites at distal area with local scabbing. There is mild redness to dorsum of thenar area. There is skin marker delineation up the are to elbow area, without any redness in that area. ) - Neuro Neuro: Alert and oriented X 3, No motor deficit, No sensory deficit Results - Vitals Vitals: Vital Signs - 24 hr 04/07/19 04/07/19 09:47 11:02 Temperature 36.4 C L 36.7 C Heart Rate 102 H 66 Respiratory 16 17 Rate Blood Pressure 108/69 125/74 O2 Saturation 97 100 Oxygen O2 Source Room air PD MEDICAL DECISION MAKING - ED course Complexity details: considered differential (patient says swelling is much decreased and less painful. The redness is decreased from skin marker areas. ), d/w patient Departure - Departure Disposition: 01 Home, Self Care Clinical Impression: Encounter for wound re-check Condition: Stable Record reviewed to determine appropriate education?: Yes Instructions: ED Bite Cat Follow-Up: Tabitha Fernandez ARNP [Primary Care Provider] - Comments: Continue current antibiotics. Soak the finger 2-3 times a day in warm water to promote any drainage and improve blood flow to the area. Mupirocin or antibiotic ointment after that to the area and bandage it to protect it. Recheck if not continually improving over the next several days and that should be without any signs of infection within a few days. Discharge Date/Time: 04/07/19 11:02
[2019-04-07] MEDS ORDERED: MUPIROCIN 2% OINT 1 GM TOP STA (10:38)
[2019-04-07 11:03] VITALS: BP 125/74
== END 2019-04-07 11:02 | disposition home or self-care (01) ==
LOC: ED 09:43
DX: S61.251A Open bite of left index finger without damage to nail, initial encounter (principal); E11.9 Type 2 diabetes mellitus without complications; F17.200 Nicotine dependence, unspecified, uncomplicated
CPT/HCPCS: 99282; 99283